=== PATIENT | female | born 1970 | race Caucasian/White ===

== ENCOUNTER → 2018-10-22 09:24 | Outpatient (CLI) | payer BC, SELFPAY ==
--- NOTE | 2018-10-22 09:28 | MM_ITS ---
MM Dig screening mamm BI w/CAD CAD Screening COMPARISON: Digital mammograms with CAD 04/14/2017 and 07/09/2010 INDICATION: There is no personal or family history of breast cancer TECHNIQUE: Standard CC and MLO images were obtained. R2 CAD reviewed. FINDINGS: Moderate diffuse fibroglandular densities are seen throughout both breasts. The findings are bilateral and symmetrical. There is no suspicious lesion and there are no suspicious microcalcifications. IMPRESSION: Stable exam no suspicious lesion seen BI-RADS Category: 1 Negative RECOMMENDED FOLLOW-UP: 1YR - 1 YEAR FOLLOW-UP (A letter has been sent to the patient regarding results of the study.)
== END ==
PROVIDERS: PCP Family Medicine; Visit Provider Obstetrics & Gynecology
DX: Z12.31 Encounter for screening mammogram for malignant neoplasm of breast (principal)
CPT/HCPCS: 77067

== ENCOUNTER → 2019-07-26 13:22 | Outpatient (POV) | payer BC, SELFPAY | PROVIDERS: Visit Provider Dermatology | DX: Z00.00 Encounter for general adult medical examination without abnormal findings (principal) ==

== ENCOUNTER 2020-04-29 13:30 | Emergency (ER) | payer BC, SELFPAY ==
[2020-04-29 14:02] VITALS: BP 128/68; PULSE 89; RESP 19; TEMP 36.8; O2SAT 99; BMI 23.0
--- NOTE | 2020-04-29 14:14 | HMH.EDUTC ---
[facility] [place] Disposition Clinical Impression: Exposure to COVID-19 virus, Encounter for laboratory testing for COVID-19 virus Disposition: Home, Self-Care Condition on Discharge: Good Instructions: Preventing the Spread of Coronavirus Discharge Instructions Additional Instructions: *Monitor Temp, Over the counter Motrin or Tylenol as directed/as needed Tylenol every 4 hours and Motrin every 6 hours (as long as your family doctor has told you that you can take it) for fever or pain. and straight to ER if unable to lower temp less than 101.0 after medication given *Warm salt water gargles may help to soothe the throat *Throat Lozenges *Warm fluids like tea with honey may help to soothe the throat *Sleep elevated *Humidifier/Vaporizer *Flonase 2 sprays in each nostril daily but be aware that it may take 2-3 days before you notice improvement Follow up IMMEDIATELY for new or worsening symptoms or no Noticeable improvement over the next 48-72 hours. 911 for difficulty breathing or swallowing You was tested for today for COVID19 your test result should be on Thursday, you may call back Thursday to see if your test results are back and the result You was given a handout with instructions for Self Quarantine and Self isolation for while you wait on test results and what to do if they are positive Referrals: Sukumar Deal MD [Primary Care Provider] - As needed Forms: Work/School Release Time of Disposition: 14:22 Medical Decision Making - Marek Inquiry Pt receiving controlled substance: No Marek was queried for this patient: No Vital Signs: 04/29/20 14:02 Temperature 98.2 F Temperature Source Oral Pulse Rate [Radial] 89 Respiratory Rate 19 Blood Pressure [Right Arm] 128/68 Blood Pressure Mean [Right Arm] 88 Blood Pressure Source [Right Arm] Automatic Cuff Blood Pressure Position [Right Arm] Sitting 02 Sat by Pulse Oximetry 99 Oxygen Delivery Method Room Air Orders (Tests/Meds): ORDERS Category Date Time Status Covid-19 Nasal PCR Sendout [facility] 04/29/20 13:55 Received [facility] [place] HPI - General Stated complaint: covid test due to exposure Time Seen by Provider: 04/29/20 14:14 Mode of Arrival: Ambulatory Source of Information: Patient Limitations: No Limitations Description of Symptoms (Recalled from Triage Doc. 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 - Related Data Previous Rx's Medication Instructions Recorded ketoconazole 2 % topical cream 1 applic TOPICAL DAILY 14 Days #30 11/23/18 g fluconazole 100 mg tablet 100 mg PO DAILY #2 tab 12/04/18 Allergies Allergy/AdvReac Type Severity Reaction Status Date / Time No Known Allergies Allergy Verified 12/04/18 12:32 - Worker's Comp Is this a Worker's Comp case?: No [facility] History - Hepatitis A Screen Drug use history?: No High risk sexual behaviors?: No History of sexually transmitted infection?: No Currently employed?: No Childcare worker?: No Do you have indoor plumbing?: Yes Do you have electricity?: Yes Attestation statement:: This patient has been screened for Hepatitis A risk factors. I have reviewed the patient's past medical history: Yes Medical History: Reports:: Anxiety Other Surgeries: Yes: No Previous Surgery Amputation: No Fractures: No - Social History Smoking Status: Never smoker Alcohol Intake: never Substance Use Type: denies use Occupational Status: employed Housing: house Household Members: family - Psychiatric History Pschychiatric History:: Rolan
[2020-04-29 14:29] VITALS: BP 128/68; PULSE 89; RESP 19; TEMP 36.8; O2SAT 99
[2020-04-30 10:25] LABS: Covid-19 Nasal PCR Sendout UK NOT DETECTED
== END 2020-04-29 14:30 | disposition home or self-care (01) ==
PROVIDERS: Emergency Provider Nurse Practitioner; PCP Family Medicine
DX: Z20.828 Contact with and (suspected) exposure to other viral communicable diseases (principal)
CPT/HCPCS: 99201; U0003

== ENCOUNTER → 2020-05-11 12:53 | Outpatient (CLI) | payer BC, SELFPAY ==
--- NOTE | 2020-05-11 13:00 | MM_ITS ---
PROCEDURE: MM DIG SCREENING MAMM BI W/CAD Referring Doctor: Jenny Trimble Patient Age:50Y CLINICAL INDICATION: SCREENING no hormones. . Patient reports irritation/itchiness around nipples 2 years. No report of discharge COMPARISON: MG DIG MAMMO BILAT SCREENING from 07/09/2010 MG DMSB DIG MAMM-SCREEN ANKIT W/CAD from 04/14/2017 MG [facility] MM Dig screening mamm BI w/CAD from 10/22/2018 TECHNIQUE: Standard CC and MLO images were obtained. R2 CAD reviewed. Bilateral digital breast tomosynthesis included. Additional axillary CC view both breast FINDINGS: . Moderately dense heterogeneous breast bilaterally. No new dominant nor suspicious mass either breast. No suspicious calcifications . No skin thickening or changes evident when compared to previous studies Right breast: No significant change no new areas of concern. Stable mild asymmetry with minimal density medial right breast unchanged since previous CC views with this area and dissipating on the axillary CC view and cc tomosynthesis Left breast: No significant new findings The MLO view is stable and unremarkable but again note area of mild asymmetry on the CC view which appears stable since previous studies 2016. No new areas of significant concern Bilateral follow-up 1 year recommended IMPRESSION: Stable mammogram, with no new areas significant concern. Stable mild asymmetry moderately dense breast Bilateral follow-up 1 year recommended BI-RAD Category: 2 Benign Finding(s) FOLLOW-UP: 1YR 1 Year Follow-up (A letter has been sent to the patient regarding results of the study.) Dictated by: Edenilson Hendrickson MD 05/14/2020 09:26 Edenilson Hendrickson MD in [place] 05/14/2020 09:26
== END ==
PROVIDERS: PCP Family Medicine; Visit Provider Obstetrics & Gynecology
DX: Z12.31 Encounter for screening mammogram for malignant neoplasm of breast (principal)
CPT/HCPCS: 77063; 77067

== ENCOUNTER 2020-07-19 10:04 | Emergency (ER) | payer BC, SELFPAY ==
[2020-07-19 10:04] VITALS: BP 128/79; PULSE 95; RESP 14; TEMP 36.3; O2SAT 100; BMI 23.0
--- NOTE | 2020-07-19 10:23 | HMH.EDUTC ---
[facility] [place] Disposition Clinical Impression: Viral syndrome, Exposure to COVID-19 virus Disposition: Home, Self-Care Condition on Discharge: Good Instructions: DI for COVID-19 (Suspected or Confirmed ), Preventing the Spread of Coronavirus Discharge Instructions Additional Instructions: Drink plenty of fluids. Take tylenol for pain or fever. Return if you begin to have difficulty breathing. Follow up with your regular doctor. GO TO THE ER FOR ANY WORSENING SYMPTOMS Prescriptions: Ondansetron [Zofran 4mg ODT] 4 mg PO Q8HP PRN #12 tab.rapdis PRN Reason: Nausea Transmission Status: Received by [id number] Benzonatate [Tessalon Perle 100mg Cap] 100 mg PO TIDP PRN #30 cap PRN Reason: Cough Transmission Status: Received by [id number] Referrals: Sukumar Deal MD [Primary Care Provider] - Time of Disposition: 10:34 Medical Decision Making - Medical Records Medical records reviewed: No: I reviewed the patient's medical records. - Marek Inquiry Pt receiving controlled substance: No Vital Signs: 07/19/20 10:04 07/19/20 10:39 Temperature 97.3 F L 97.3 F L Temperature Source Oral Pulse Rate 95 H Pulse Rate [Right] 95 H Respiratory Rate 14 14 Blood Pressure 128/79 Blood Pressure [Right Arm] 128/79 Blood Pressure Mean [Right Arm] 95 02 Sat by Pulse Oximetry 100 Orders (Tests/Meds): ORDERS Category Date Time Status Covid-19 Nasal PCR ([facility]) Routine Lab 07/19/20 10:15 Received [facility] [place] HPI - General Stated complaint: covid exposure,symtoms Time Seen by Provider: 07/19/20 10:23 - History of Present Illness Provider Complaint: She complains of having mild chest congestion and cough, feeling bad, low grade fever. Her symptoms began around 3 days ago. She intially thought that she was getting a cold, but today she woke up with no sense of smell or taste. - Related Data Previous Rx's Medication Instructions Recorded ketoconazole 2 % topical cream 1 applic TOPICAL DAILY 14 Days #30 11/23/18 g fluconazole 100 mg tablet 100 mg PO DAILY #2 tab 12/04/18 Benzonatate [Tessalon Perle 100mg 100 mg PO TIDP PRN #30 cap 07/19/20 Cap] Ondansetron [Zofran 4mg ODT] 4 mg PO Q8HP PRN #12 tab.rapdis 07/19/20 Allergies Allergy/AdvReac Type Severity Reaction Status Date / Time No Known Allergies Allergy Verified 07/19/20 10:11 [facility] History - Hepatitis A Screen Attestation statement:: This patient has been screened for Hepatitis A risk factors. I have reviewed the patient's past medical history: Yes Medical History: Reports:: Anxiety Other Surgeries: Yes: No Previous Surgery Amputation: No Fractures: No - Social History Smoking Status: Never smoker Alcohol Intake: never Substance Use Type: denies use Occupational Status: employed Housing: house Household Members: family - Psychiatric History Pschychiatric History:: Reports:: Anxiety Family Hx:: Thyroid Disorder, Diabetes, Cancer ROS Obtained: Yes All systems reviewed & no additional complaints - Constitutional Constitutional: Reports system reviewed and no additional complaints, except as docu - Eyes Eyes: Reports system reviewed and no additional complaints, except as docu - ENT Ears, Nose, Mouth, and Throat: Reports system reviewed and no additional complaints, except as docu - Cardiovascular Cardiovascular: Reports system reviewed and no additional complaints, except as docu - Respiratory Respiratory: Reports system reviewed and no additional complaints, except as docu - Gastrointestinal Gastrointestingal: Reports: system reviewed and no additional complaints, except as docu Physical Exam - General General appearance: alert, in no apparent distress - Head Head exam: atraumatic, normocephalic, normal inspection - Eye Eye exam: Present: normal appearance, PERRL, EOMI - ENT ENT exam: Present: normal exam, normal oropharynx, mucous membranes moist, TM's ayaka
[2020-07-19 10:39] VITALS: BP 128/79; PULSE 95; RESP 14; TEMP 36.3; O2SAT 100
--- NOTE | 2020-07-19 16:44 | PC.NURSE ---
patient informed of positive covid results
== END 2020-07-19 10:40 | disposition home or self-care (01) ==
PROVIDERS: Emergency Provider Nurse Practitioner Family; PCP Family Medicine
DX: U07.1 COVID-19 (principal); F41.9 Anxiety disorder, unspecified
CPT/HCPCS: 99202; G0463; U0003

== ENCOUNTER → 2021-08-08 13:25 | Outpatient (CLI) | payer BC, SELFPAY ==
--- NOTE | 2021-08-08 13:29 | MM_ITS ---
PROCEDURE INFORMATION: Exam: MG Bilateral Screening 3D Mammography Exam date and time: 08/08/2021 1:29 PM Age: 51 years old Clinical indication: Encounter for screening mammogram for malignant neoplasm of breast TECHNIQUE: Imaging protocol: Bilateral Screening tomosynthesis and 2D mammography including computer-aided detection (CAD) when performed. COMPARISON: 1. MG MM DIG SCREENING MAMM BI W/CAD 05/11/2020 12:58 PM 2. MG [facility] MM Dig screening mamm BI w/CAD 10/22/2018 9:37 AM FINDINGS: MAMMOGRAPHY: Breast composition: The breast tissue is heterogeneously dense, which may obscure small masses. Mass: None. Architectural distortion: None. Calcifications: No suspicious calcifications. Asymmetric density: None. Skin thickening: None. Axillary adenopathy: None. IMPRESSION: No mammographic evidence of malignancy. Annual screening is recommended unless otherwise clinically indicated. ASSESSMENT: BI-RADS Category 1: Negative
== END ==
PROVIDERS: PCP Family Medicine; Visit Provider Obstetrics & Gynecology
DX: Z12.31 Encounter for screening mammogram for malignant neoplasm of breast (principal)
CPT/HCPCS: 77063; 77067

== ENCOUNTER → 2021-12-10 09:57 | Outpatient (POV) | payer BC, SELFPAY | PROVIDERS: Visit Provider Dermatology | DX: Z00.00 Encounter for general adult medical examination without abnormal findings (principal) ==

== ENCOUNTER → 2022-09-30 12:51 | Outpatient (CLI) | payer BC, SELFPAY ==
--- NOTE | 2022-09-30 12:54 | MM_ITS ---
PROCEDURE INFORMATION: Exam: MG Bilateral Screening 3D Mammography Exam date and time: 09/30/2022 12:56 PM Age: 52 years old Clinical indication: Screening mammogram TECHNIQUE: Imaging protocol: Bilateral Screening tomosynthesis and 2D mammography including computer-aided detection (CAD) when performed. COMPARISON: 1. MG MM DIG SCREENING MAMM BI W/CAD 08/08/2021 1:34 PM 2. MG MM DIG SCREENING MAMM BI W/CAD 05/11/2020 12:58 PM 3. MG [facility] MM Dig screening mamm BI w/CAD 10/22/2018 9:37 AM 4. MG DMSB DIG MAMM-SCREEN ANKIT W/CAD 04/14/2017 11:19 AM FINDINGS: MAMMOGRAPHY: Breast composition: There are scattered areas of fibroglandular density. Mass: None. Architectural distortion: No new or suspicious architectural distortion. Calcifications: No new or suspicious calcifications are present Asymmetric density: No new or suspicious asymmetric density is present Skin thickening: None. Axillary adenopathy: None. IMPRESSION: No mammographic evidence of malignancy. Recommend annual screening mammography unless otherwise clinically indicated. ASSESSMENT: BI-RADS category 1: Negative
== END ==
PROVIDERS: PCP Family Medicine; Visit Provider Obstetrics & Gynecology
DX: Z12.31 Encounter for screening mammogram for malignant neoplasm of breast (principal)
CPT/HCPCS: 77063; 77067

== ENCOUNTER → 2023-06-17 08:46 | Outpatient (CLI) | payer BC, SELFPAY ==
[2023-06-17 09:32] LABS: Basophils % 0.4 % (0.1-2.0); Eosinophils # 0.1 K/mm3 (0.0-0.4); Eosinophils % 2.3 % (0.1-12.0); Hematocrit 39.8 % (37.0-47.0); Hemoglobin 13.8 g/dL (12.2-16.2); Lymphocytes # 1.6 K/mm3 (0.7-4.5); Lymphocytes % 33.9 % (10-50); Mean Corpuscular HGB Conc 34.7 g/dL (31.8-35.4); Mean Corpuscular Hemoglobin 30.8 pg (27.0-31.2); Mean Corpuscular Volume 88.8 fl (81-99); Mean Platelet Volume 8.3 fl (7.4-10.4); Monocytes # 0.2 K/mm3 (0.1-1.0); Monocytes % 3.6 % (1.7-9.3); Neutrophils # 2.9 K/mm3 (1.8-7.8); Neutrophils % 59.8 % (37.0-80.0); Platelet Count 273 K/mm3 (142-424); Red Blood Count 4.49 M/mm3 (4.20-5.40); Red Cell Distribution Width 12.8 % (11.5-17.5); White Blood Count 4.8 K/mm3 (4.8-10.8)
[2023-06-17 10:04] LABS: Chloride 104 mmol/L (98-107); Potassium 4.3 mmoL/L (3.5-5.1); Sodium 138 mmol/L (136-145)
[2023-06-17 10:07] LABS: Alanine Aminotransferase 31 U/L (12-78); Albumin Level 4.8 g/dl (3.5-5.0); Albumin/Globulin Ratio 1.7 (1.1-1.8); Alkaline Phosphatase 93 U/L (38-126); Anion Gap 11.3 mEq/L (5-15); Aspartate Amino Transferase 32 U/L (14-36); Bilirubin,Total 0.5 mg/dl (0.2-1.3); Blood Urea Nitrogen 14 mg/dl (7-17); Carbon Dioxide 27 mmol/L (22.0-30.0); Cholesterol 286 mg/dl (140-200); Estimated Glomerular Filt Rate 105 ml/min (>60); GFR (African American) 127 ML/MIN (>60); Globulin 2.9 g/dL (1.3-3.2); Total Protein,Serum 7.7 g/dl (6.3-8.2); Triglycerides 131 mg/dl (30-150); VLDL Cholesterol 26 mg/dL (0-40)
[2023-06-17 10:08] LABS: Calcium 9.2 mg/dl (8.4-10.2); Chol/HDL Ratio 3.7 (1-3.5); Glucose 93 mg/dl (74-100); HDL Cholesterol 77 mg/dl (40-60)
[2023-06-17 10:19] LABS: Direct LDL Cholesterol 146.32 mg/dL (100-129)
[2023-06-17 10:20] LABS: Free T4 (Free Thyroxine) 1.03 ng/dl (0.78-2.19)
[2023-06-17 10:50] LABS: 25-OH Vitamin D, Total 36.3 ng/mL (30-100)
[2023-06-17 11:04] LABS: Hemoglobin A1C 5.6 % (4.0-6.0)
[2023-06-17 11:06] LABS: Thyroid Stimulating Hormone 0.66 uIU/mL (0.465-4.68)
== END ==
PROVIDERS: PCP Internal Medicine; Visit Provider Internal Medicine
DX: Z00.00 Encounter for general adult medical examination without abnormal findings (principal); Z13.220 Encounter for screening for lipoid disorders; Z13.21 Encounter for screening for nutritional disorder; Z13.1 Encounter for screening for diabetes mellitus; Z13.29 Encounter for screening for other suspected endocrine disorder
CPT/HCPCS: 36415; 80053; 80061; 82306; 83036; 84439; 84443; 85025

== ENCOUNTER 2023-07-20 15:45 | Outpatient (CLI) | payer BC, SELFPAY ==
--- NOTE | 2023-07-20 15:46 | US_ITS ---
PROCEDURE: US TRANSVAGINAL CLINICAL INDICATION: pelvic pain and adnexal fulness COMPARISON: No exams were available for comparison FINDINGS: Transvaginal sonographic images of the pelvis were obtained. UTERUS: 7.7 cm x 5.3cmx 4.1cm retroverted and retroflexed with a combined endometrial thickness of 6.8mm. LEFT OVARY: 2.0cmx1.2cmx1.0cm with a volume of 1.4ml. RIGHT OVARY: 2.1cmx 0.8 cmx1.0cm with a volume of 0.9ml. Both ovaries are seen and appear normal. Doppler flow to both ovaries are seen. There is no fluid in the cul-de-sac. IMPRESSION: 1. Retroverted, retroflexed uterus normal in shape and size. 2. The endometrium is thin at 6.8 mm. 3. Both ovaries are seen and appear atrophic. 4. No fluid in the cul-de-sac. Dictated by: Dru Anderson MD 07/20/2023 17:13 Dru Anderson MD in [place] 07/20/2023 17:13
== END 2023-07-20 23:59 ==
LOC: RAD 15:46
PROVIDERS: PCP Internal Medicine; Visit Provider Obstetrics & Gynecology
DX: N94.89 Other specified conditions associated with female genital organs and menstrual cycle (principal); R10.2 Pelvic and perineal pain
CPT/HCPCS: 76830

== ENCOUNTER 2023-08-11 13:57 | Outpatient (CLI) | payer BC, SELFPAY ==
--- NOTE | 2023-08-11 14:06 | XR_ITS ---
FINAL REPORT CLINICAL HISTORY: foot pain FINDINGS: Right foot Three views were obtained. There is no acute fracture or dislocation. There are mild degenerative changes of the 1st metatarsophalangeal joint. Minimal calcaneal spurring is identified. No soft tissue abnormality is identified. IMPRESSION: Degenerative changes as above. Reviewed, Interpreted and Dictated by Savannah Menard MD Transcribed by Tory Varghese Authenticated and [facility]
--- NOTE | 2023-08-11 14:06 | XR_ITS ---
FINAL REPORT CLINICAL HISTORY: foot pain FINDINGS: Left foot Three views were obtained. There is no acute fracture or dislocation. The joint spaces appear normal. No soft tissue abnormality is identified. IMPRESSION: No acute process. Reviewed, Interpreted and Dictated by Savannah Menard MD Transcribed by Tory Varghese Authenticated and . [facility]
== END 2023-08-11 23:59 ==
LOC: RAD 13:58
PROVIDERS: PCP Internal Medicine; Visit Provider Nurse Practitioner
DX: M72.2 Plantar fascial fibromatosis (principal); M79.671 Pain in right foot; M79.672 Pain in left foot
CPT/HCPCS: 73630

== ENCOUNTER 2023-12-17 15:29 | Outpatient (CLI) | payer BC, SELFPAY ==
--- NOTE | 2023-12-17 15:30 | MM_ITS ---
PROCEDURE INFORMATION: Exam: MG Bilateral Screening 3D Mammography Exam date and time: 12/17/2023 3:39 PM Age: 53 years old Clinical indication: Screening examination TECHNIQUE: Imaging protocol: Bilateral Screening tomosynthesis and 2D mammography including computer-aided detection (CAD) when performed. COMPARISON: 1. MG MM DIG SCREENING MAMM BI W/CAD 09/30/2022 12:56 PM 2. MG MM DIG SCREENING MAMM BI W/CAD 08/08/2021 1:34 PM FINDINGS: MAMMOGRAPHY: Breast composition: The breasts are heterogeneously dense, which may obscure small masses. Mass: None. Architectural distortion: None. Calcifications: No suspicious calcifications. Asymmetric density: None. Skin thickening: None. Axillary adenopathy: None. IMPRESSION: No mammographic evidence of malignancy. Annual screening is recommended unless otherwise clinically indicated. ASSESSMENT: BI-RADS Category 1: Negative
== END 2023-12-17 23:59 | disposition home or self-care (01) ==
LOC: RAD 15:30
PROVIDERS: PCP Internal Medicine; Visit Provider Obstetrics & Gynecology
DX: Z12.31 Encounter for screening mammogram for malignant neoplasm of breast (principal)
CPT/HCPCS: 77063; 77067